=== PATIENT | male | born 1940 | race Caucasian/White ===

== ENCOUNTER 2022-04-02 10:32 | Emergency (ER) | payer OTHER, SELFPAY ==
[2022-04-02 10:44] VITALS: BP 123/58; PULSE 69; RESP 16; TEMP 36.9; O2SAT 100
--- NOTE | 2022-04-02 11:20 | ED.URI ---
HPI - URI/Sore Throat General Chief Complaint: Upper Respiratory Infection Stated Complaint: Cough/Headache Time Seen by Provider: 04/02/22 10:50 Source: patient Mode of arrival: ambulatory Limitations: no limitations History of Present Illness HPI Narrative: Mr. Gomez is a 81-year-old male patient presenting to the clinic today with complaints of cough and runny nose and headache x2 days. He denies any fever or chills MD elicited complaint: cough and nasal congestion Related Data Home Medications Medication Instructions Recorded Confirmed acalabrutinib 100 mg capsule 100 mg PO DAILY 04/02/22 04/02/22 ([place]) allopurinol 300 mg tablet 300 mg PO DAILY 04/02/22 04/02/22 amlodipine 2.5 mg tablet 2.5 mg PO DAILY 04/02/22 04/02/22 apixaban 5 mg tablet (Eliquis) 5 mg PO DAILY 04/02/22 04/02/22 aspirin 81 mg tablet,delayed 81 mg PO DAILY 04/02/22 04/02/22 release atorvastatin 80 mg tablet 80 mg PO DAILY 04/02/22 04/02/22 carbidopa 10 mg-levodopa 100 mg 1 tablet PO TID 04/02/22 04/02/22 tablet clonazepam 0.5 mg tablet 0.5 mg PO DAILY 04/02/22 04/02/22 folic acid 1 mg tablet 1 mg PO DAILY 04/02/22 04/02/22 furosemide 20 mg tablet 20 mg PO DAILY 04/02/22 04/02/22 isosorbide mononitrate 60 mg 60 mg PO DAILY 04/02/22 04/02/22 tablet,extended release 24 hr lisinopril 5 mg tablet 5 mg PO DAILY 04/02/22 04/02/22 metoprolol succinate 100 mg 100 mg PO DAILY 04/02/22 04/02/22 tablet,extended release 24 hr primidone 50 mg tablet 50 mg PO DAILY 04/02/22 04/02/22 vit C 250 mg-vit E 90 mg-zinc 40 1 tablet PO BID 04/02/22 04/02/22 mg-copper 1 [id number] capsule (PreserVision AREDS-2) Allergies Allergy/AdvReac Type Severity Reaction Status Date / Time No Known Allergies Allergy Unknown Verified 04/02/22 10:58 Review of Systems Review of Systems: Pertinent positives per HPI. Patient denies any fever, chills, rash, headache, visual changes, dizziness, shortness of breath, chest pain, palpitations, nausea, vomiting, diarrhea, constipation, abdominal pain, or any urinary issues. PMFSH Comments At the time of my signature, I reviewed and agree with the nursing past medical, surgical, social, and family history. There is no relevant family history pertinent to the patient complaint. Exam Narrative: General: Well-developed, well nourished, in no apparent distress Head: Normocephalic, atraumatic Eyes: Pupils equally round and reactive to light bilaterally, EOM intact, sclera and conjunctive clear, no discharge, lids normal Ears: TMs intact and clear, ear canals clear, no drainage, grossly hearing normal. Nose: Nares patent, clear nasal discharge, mild inflammation, no sinus tenderness. Mouth: Oral pharynx without lesions or masses, good dentition, MMM. postnasal drip Neck: Supple, trachea midline, no enlargement of anterior or posterior cervical nodes, no thyroid masses or goiter palpable. Cardio: Regular rate and rhythm, s1 and s2 normal, no murmur appreciated. Resp: Clear to auscultation bilaterally, no rhonchi, rales, wheezing or rubs Course Course Emergency Course: Portions of this record may have been created with voice recognition software. Level of Care: Express Care Visit Vital Signs Vital signs: Vital Signs Temperature 36.9 C 04/02/22 10:44 Pulse Rate 69 04/02/22 10:44 Respiratory Rate 16 04/02/22 10:44 Blood Pressure 123/58 L 04/02/22 10:44 Pulse Oximetry 100 04/02/22 10:44 Oxygen Delivery Room Air 04/02/22 10:44 Temperature 36.9 C 04/02/22 10:44 Pulse Rate 69 04/02/22 10:44 Respiratory Rate 16 04/02/22 10:44 Blood Pressure 123/58 L 04/02/22 10:44 Pulse Oximetry 100 04/02/22 10:44 Oxygen Delivery Room Air 04/02/22 10:44 Vital signs reviewed MDM - URI/Sore Throat MDM Narrative Medical decision making narrative: At the time of visit patient is resting comfortably on the exam table. I suspect patient has an upper respiratory infection.
== END 2022-04-02 11:24 | disposition home or self-care (01) ==
PROVIDERS: Emergency Provider Nurse Practitioner Family
DX: J06.9 Acute upper respiratory infection, unspecified (principal)
CPT/HCPCS: 87804; 99203; G0463